=== PATIENT | male | born 1930 | race Caucasian/White ===

== ENCOUNTER → 2017-03-24 | Outpatient (CLI) | payer MEDICARE ==
[~2017-03-24] MED LIST: ASPI81TA82 PO; ATOR10 PO; DOXY100T PO; ZOLP1TAB32 PO
== END ==
LOC: HRSP 09:28
PROVIDERS: ATTEND Internal Medicine
DX: J44.9 Chronic obstructive pulmonary disease, unspecified (principal)
CPT/HCPCS: 94060; 94620; 94726; 94729